=== PATIENT | female | born 1985 | race Caucasian/White ===

== ENCOUNTER 2016-10-08 19:19 | Emergency (ER) | payer OTHER ==
--- NOTE | 2016-10-08 21:49 | ED ORDER SUMMARY ---
..... Patient: ZELDA MONTES OrderSheet [facility] VisitID: [id number] [address] [place] [address] 31y, F Registration Date/Time: 10/08/2016 ORDER SHEET Weight: 64.4 kg (stated) Allergies: No Known Drug Allergy GENERAL ORDERS: US Pelvic Complete w Transvag Urgent (19:51 10/08/2016 HBivens A.R.N.P.) (Ack 20:02 AMcQuoid ER Tech1) (Cancelled: Wrong Order21:29 AMcQuoid ER Tech1) CBC w Diff Urgent (19:51 10/08/2016 HBivens A.R.N.P.) (Ack 20:02 AMcQuoid ER Tech1) (20:11 EHassan R.N.) CMP Urgent (19:51 10/08/2016 HBivens A.R.N.P.) (Ack 20:02 AMcQuoid ER Tech1) (20:11 EHassan R.N.) UA-Culture if indicated Urgent (19:51 10/08/2016 HBivens A.R.N.P.) (Ack 20:02 AMcQuoid ER Tech1) (20:45 EHassan R.N.) Amylase Urgent (19:51 10/08/2016 HBivens A.R.N.P.) (Ack 20:02 AMcQuoid ER Tech1) (20:11 EHassan R.N.) Lipase Urgent (19:51 10/08/2016 HBivens A.R.N.P.) (Ack 20:02 AMcQuoid ER Tech1) (20:11 EHassan R.N.) Urine Urgent (19:51 10/08/2016 HBivens A.R.N.P.) (Ack 20:02 AMcQuoid ER Tech1) (20:45 EHassan R.N.) US Soft Tissue Anywhere (er) Urgent (21:29 10/08/2016 AMcQuoid ER Tech1 verbal order read back to HBivens A.R.N.P.) (21:30 AMcQuoid ER Tech1) MEDICATION ORDERS: IV FLUIDS: Toradol IV 30 mg (NOW) (19:51 10/08/2016 HBivens A.R.N.P.) (20:11 Lisa R.N.) IV Saline Lock (19:51 10/08/2016 HBivens A.R.N.P.) (20:11 Lisa R.N.) ORDER SHEET NOTES: [Electronically signed by Jen TheodoreRBenNBenPBen (22:29 10/08/2016)] [Electronically signed by Veronique Huertas R.N. (23:08 10/08/2016)] [Electronically locked/signed by Veronique Huertas R.N. (23:08 10/08/2016)]
--- NOTE | 2016-10-08 21:49 | ED NURSING NOTES ---
Clinical Report - Nurses [facility] [address] [place] [address] 10/08/2016 19:21 Patient: ZELDA MONTES TRIAGE Triage time 1930 PM. Acuity: LEVEL 4. Chief Complaint: (left swollen lymph node). Alert. No acute distress. DONOVAN COMA SCORE: [place] Coma Scale: 15- eyes open spontaneously (4); best verbal response- oriented x 4 (5); best motor response- obeys commands (6). --19:45 Veronique Huertas R.N. 19:38 10/08/16. BP: 129/88. HR: 93. RR: 16. O2 saturation: 100% on room air. Temp: 99.3 F (oral). Pain level now: 04/26. --19:45 Veronique Huertas R.N. Weight: 64.4 kg stated. Height/Length: 63 inches Per Patient. BMI: 25.2. --19:38 Veronique Huertas R.N. Medications None. --23:07 Veronique Huertas R.N. Medication/allergy information source: the patient. --19:45 Veronique Huertas R.N. Allergies No Known Drug Allergy. --23:08 Veronique Huertas R.N. History Arrived by private vehicle. Historian: patient. Accompanied by family. Primary physician ([facility]). ( Pt states seeing her primary doctor today due to a left swollen lymph node that she noticed 3 days ago on her groin, was told that it was due to a yeast infection which got a cream prescription. Pt denies any fevers, pain has increased since today. Here for an evaluation). Onset. (3 days). No fever, weakness, cough, difficulty breathing or skin rash. Denies muscle aches. Treatment SENIOR SECURITY ANALYST: None. PAST MEDICAL HX: Immunizations: up-to-date. Uses an intrauterine device. SOCIAL HX: Never smoker. Occasional alcohol use. No drug use. ABUSE ASSESSMENT: No report of abuse. SELF HARM ASSESSMENT: A self harm assessment was performed. The patient answered "no" to the question "Do you have thoughts of harming or killing yourself?" and "Have you recently had thoughts about harming or killing others?". FALL RISK ASSESSMENT: Fall risk assessment completed. No fall risk identified. NUTRITIONAL RISK ASSESSMENT: The nutritional risk assessment revealed no deficiencies. FUNCTIONAL ASSESSMENT: Functional assessment: no impairments noted. LEARNING NEEDS ASSESSMENT: The learning needs assessment revealed no barriers. SKIN INTEGRITY ASSESSMENT: Skin integrity risk assessment completed. No skin integrity risk identified. --19:45 Veronique Huertas R.N. PROBLEMS: no known problems. Interventions ID band on patient. To room. --19:45 Veronique Huertas R.N. PHYSICAL ASSESSMENT Ambulatory to room. GENERAL / NEURO / PSYCH: Alert. Oriented X 4. Appears in no acute distress. Appears in pain and anxious. HEENT: Pupils equal, round and reactive to light. Mucous membranes are pink. RESPIRATORY: Respirations not labored. Breath sounds within normal limits. CVS: Capillary refill less than 2 seconds. GI / : Abdomen soft and nontender. SKIN: Skin intact. Skin is warm and dry. Normal skin turgor. --19:46 Veronique Huertas R.N. NURSING PROGRESS NOTES The initial plan of care for this patient has been created This plan of care was discussed with the patient. Patient gowned. Warming measures: blanket applied. Reassurance given. Call light placed in reach. Patient ready for evaluation- chart flagged and FENDER MECHANIC APPRENTICE notified. --19:46 Veronique Huertas R.N. 20:11 10/08/2016 Site #1 started via IV in the right antecubital space with an 20g angiocath; one attempt. Blood drawn: rainbow set. Labeled in the presence of the patient and sent to the lab. --20:11 Veronique Huertas R.N. 20:11 10/08/2016 Toradol IVP 30 mg given over 30 second(s) via site #1. Allergies verified and confirmed 5 rights. IV patency established. IV site checked: no pain, redness, or swelling. IV flushed thoroughly pre- and post-medication administration. IVP given by RN. --20:11 Veronique Huertas R.N. 20:45 10/08/2016 Toradol IVP Response: no adverse reaction pain is improving. --20:45 Veronique Huertas R.N. DISPOSITION / DISCHARGE 21:55 10/08/16. BP: 122/81. HR: 74. RR: 14. O2 saturation: 100%. Temp: 99.2 F. Pain level now 3/10. --21:55 Rosalie Betancur Condition at departure: unchanged. No learning barriers present. Discharge instructions provided and reviewed with the patient. Reviewed medication(s) side effects, precautions, dosing and course information. Patient verbalized understanding. Written instructions provided in Lao. The patient was discharged home and accompanied by family. She left the Emergency Department ambulatory and via private vehicle. Family member driving. FALL RISK ASSESSMENT: Fall risk assessment completed. No fall risk identified. --23:03 Floridalma Marte R.N. Departure time: 2199Oct 08 2016. --23:03 Floridalma Marte R.N. 23:03 10/08/2016 Site #1 removed upon discharge. Catheter intact. Bandage applied. --23:04 Floridalma Marte R.N. Locked/Released at 10/08/2016 23:08 by Veronique Huertas R.N.
--- NOTE | 2016-10-08 21:49 | ED CLINICAL REPORT ---
Clinical Report - Physicians/Mid Levels [facility] [address] [place] [address] 10/08/2016 19:21 Patient: ZELDA MONTES Time Seen: 19:40; initial patient contact, initial documentation, patient care assumed. Arrived- By private vehicle. Historian- patient. HISTORY OF PRESENT ILLNESS Chief Complaint: PELVIC PAIN. At its maximum, severity described as severe. When seen in the E.D., severity described as severe. Modifying factors. Not worsened by anything. Not relieved by anything. This started 3 days ago and is still present. It was abrupt in onset and has been constant. It is described as "pain". No radiation. It is described as located in the left pelvis. No nausea, loss of appetite, vomiting or diarrhea. No additional abdominal pain. (c/o lymph node swelling in L groin that is getting bigger thru-out the day). No recent travel. Similar symptoms previously: None. Recent medical care: The patient was seen recently in the office. ( went to dr today, and was told she had fungal infection of the skin in vagina area, cream given, and that the swelling was normal and it was a lymph node, but it is getting bigger and more painful). REVIEW OF SYSTEMS No constipation, black stools, hematemesis, difficulty with urination or pain with urination. No urinary frequency, bloody stools, fever, chest pain or difficulty breathing. She has missed periods. She has been using an IUD for control. Denies current . All systems otherwise negative, except as recorded above. PAST HISTORY Negative. SOCIAL HISTORY Never smoker. Occasional alcohol use. No drug use. No recent travel. Is a local resident. FAMILY HISTORY Negative. ADDITIONAL NOTES The nursing notes have been reviewed with agreement regarding the chief complaint, HPI, ROS, PMH and patient medications and allergies. PHYSICAL EXAM Vital Signs: 10/08/2016 19:38 BP: 129/88. HR: 93. RR: 16. O2 saturation: 100%. Temp: 99.3 F. Pain level now: 1010. Have been reviewed as normal and appear to be correct. Appearance: Alert. Oriented X3. No acute distress. Eyes: Pupils equal, round and reactive to light. Eyes normal inspection. Neck: Normal inspection. Neck supple. CVS: Normal heart rate and rhythm. Heart sounds normal. Pulses normal. Respiratory: No respiratory distress. Breath sounds normal. Chest nontender. Abdomen: Soft. Tenderness in the left lower quadrant. No guarding, rebound tenderness or Rogel's, obturator or psoas sign present. Bowel sounds normal. No organomegaly. Moderate, tender mass present in the left lower quadrant. No pulsatile mass present. No guarding present. Tenderness present. Mass present. Back: Normal inspection. Skin: Skin warm and dry. Normal skin color. No rash. Normal skin turgor. Extremities: Extremities exhibit normal ROM. No lower extremity edema. Neuro: Oriented X 3. No motor deficit. No sensory deficit. LABS, X-RAYS, AND EKG Pelvic Sonogram: . swollen lymph nodes L side verbal report per Fortumoher. Interpretation time: 21:15. Laboratory Tests: UA-Culture if indicated: (YESSY: 10/08/2016 20:45) ( [facility] 10/08/2016 21:00) Final results Test Result Flag Units (Reference) URINE COLOR YELLOW URINE APPEARANCE SL CLOUDY URINE GLUCOSE NEGATIVE (NEGATIVE) URINE BILIRUBIN NEGATIVE (NEGATIVE) URINE KETONE NEGATIVE (NEGATIVE) URINE SPECIFIC GRAVITY 1.025 (1.010-1.030) URINE PH 5.5 (5.0-8.0) URINE PROTEIN NEGATIVE (NEGATIVE) URINE UROBILINOGEN 0.2 EU/dL (0.2-1.0) URINE NITRITE NEGATIVE (NEGATIVE) URINE BLOOD TRACE-INTACT (NEGATIVE) URINE LEUK ESTERASE POSITIVE (NEGATIVE) URINE RBC 1-3 rbc/hpf (0-1) URINE WBC 3-5 wbc/hpf (0-1) URINE EPITHELIAL CELLS 3-5 EPI/hpf (0-5) URINE BACTERIA TRACE (<1+) (NONE SEEN) URINE COMMENT CULTURE INDICATED URINE CULTURES ARE SET-UP BASED ON THE FOLLOWING CRITERIA:POSITIVE NITRITEPOSITIVE LEUKOCYTE ESTERASEGREATER THAN 10 WHITE BLOOD CELLSMODERATE (2+) OR GREATER BACTERIA Urine: (YESSY: 10/08/2016 20:45) ( MsgRcvd 10/08/2016 20:52) Final results Test Result Flag Units (Reference) URINE NEGATIVE CBC w Diff: (YESSY: 10/08/2016 20:10) ( [facility] 10/08/2016 20:21) Final results Test Result Flag Units (Reference) WHITE BLOOD COUNT 10.9 K/uL (4.5-11.5) RED BLOOD COUNT 4.35 M/uL (4.00-5.20) HEMOGLOBIN 12.9 gm/dL (12.0-16.0) HEMATOCRIT 38.2 % (36.0-46.0) MEAN CELL VOLUME 88 fL (80-100) MEAN CORPUSCULAR HGB 30 pg (26-34) MEAN CORPUSCULAR HGB CONC 34 g/dL (31-37) RED CELL DISTRIBUTION WIDTH 12.9 % (11.6-14.8) PLATELET COUNT 232 K/uL (150-400) NEUTROPHIL % 76.9 H % (50-75) LYMPH % 12.1 L % (25-40) MONO % 9.0 % (3-14) EOSINOPHIL % 1.8 % (0-4) BASOPHIL % 0.2 % (0-2) CMP: (YESSY: 10/08/2016 20:10) ( [facility] 10/08/2016 20:35) Final results Test Result Flag Units (Reference) GLUCOSE 113 H mg/dL (70-110) BUN 10 mg/dL (7-18) CREATININE 0.8 mg/dL (0.6-1.3) Estimated GFR >60 mL/min Estimated GFR- >60 mL/min Note: Persistent reduction over 3 months in eGFR<60 mL/min/1.73 m2 defines CKD. Patients with eGFR values>=60 mL/min/1.73 m2 may also have CKD if evidence ofpersistent proteinuria. Additional information may be foundat www.kidney.org. SODIUM 139 mmol/L (136-145) POTASSIUM 3.6 mmol/L (3.5-5.1) CHLORIDE 105 mmol/L (98-107) CARBON DIOXIDE 26 mmol/L (21-32) CALCIUM 8.8 mg/dL (8.5-10.1) TOTAL PROTEIN 7.4 g/dL (6.4-8.2) ALBUMIN 3.9 g/dL (3.3-5.0) BILIRUBIN, TOTAL 0.4 mg/dL (0.0-1.0) ALKALINE PHOSPHATASE 54 U/L (46-116) AST (SGOT) 15 U/L (15-37) ALT (SGPT) 21 U/L (12-78) LIPASE 130 U/L (73-393) AMYLASE 42 U/L (25-115) . PROGRESS AND PROCEDURES Course of Care: 2100. US here. Patient counseled in person regarding the patient's stable condition, test results and diagnosis. 21:28. Differential Diagnosis: Other possible considerations: lymph node swelling, lymphadenitis, abscess, hernia, ovarian cyst, ectopic , ca. Above considerations are based on history, physical exam, laboratory data and other information. Differential diagnosis was discussed with patient. Disposition: Discharged home in good and improved condition (21:49). Condition: good and stable. CLINICAL IMPRESSION Acute left inguinal lymphadenitis Acute pelvic pain. Acute urinary tract infection. No cystitis, pyelonephritis or hematuria. Not associated with indwelling catheter or obstruction. INSTRUCTIONS Drink plenty of fluids. Warnings: GENERAL WARNINGS: Return or contact your physician immediately if your condition worsens or changes unexpectedly, if not improving as expected, or if other problems arise. SPECIFICALLY, return if you develop pain in the abdomen or pelvis, fever, the inability to keep fluids down, blood in vomitus, blood in diarrhea, fainting or lightheadedness. Prescription Medications: Bactrim DS: take 1 tablet orally every 12 hours for 10 days. No refill. Substitution is not permissible. Ultram 50 mg tablets: take 1-2 orally every 6 hours as needed for pain. Dispense twenty (20). No refills. Substitution is permissible. Follow-up: Follow up with your doctor in about five days even if well. Call for an appointment. Summary of care provided to patient. Understanding of the discharge instructions verbalized by patient. (Electronically signed by Jen Theodore A.R.N.P. 10/08/2016 22:29) Addenda for ZELDA MONTES VisitID: [id number] Date: 10/08/2016 10/08/2016 22:56 Pharmacy called; patient unable to take Bactrim because of Sulfa allergy. Per Jen Theodore, Rx changed to: Cipro 500 mg 1 tablet BID dispense 20 (Electronically signed by Julee Hidalgo - 10/08/2016 22:56)
--- NOTE | 2016-10-08 21:49 | ED NURSING NOTES ---
Clinical Report - Nurses [facility] [address] [place] [address] 10/08/2016 19:21 Patient: ZELDA MONTES TRIAGE Triage time 1930 PM. Acuity: LEVEL 4. Chief Complaint: (left swollen lymph node). Alert. No acute distress. DONOVAN COMA SCORE: [place] Coma Scale: 15- eyes open spontaneously (4); best verbal response- oriented x 4 (5); best motor response- obeys commands (6). --19:45 Veronique Huertas R.N. 19:38 10/08/16. BP: 129/88. HR: 93. RR: 16. O2 saturation: 100% on room air. Temp: 99.3 F (oral). Pain level now: 04/26. --19:45 Veronique Huertas R.N. Weight: 64.4 kg stated. Height/Length: 63 inches Per Patient. BMI: 25.2. --19:38 Veronique Huertas R.N. Medications None. --23:07 Veronique Huertas R.N. Medication/allergy information source: the patient. --19:45 Veronique Huertas R.N. Allergies No Known Drug Allergy. --23:08 Veronique Huertas R.N. History Arrived by private vehicle. Historian: patient. Accompanied by family. Primary physician ([facility]). ( Pt states seeing her primary doctor today due to a left swollen lymph node that she noticed 3 days ago on her groin, was told that it was due to a yeast infection which got a cream prescription. Pt denies any fevers, pain has increased since today. Here for an evaluation). Onset. (3 days). No fever, weakness, cough, difficulty breathing or skin rash. Denies muscle aches. Treatment COMMUNICATIONS EXECUTIVE: None. PAST MEDICAL HX: Immunizations: up-to-date. Uses an intrauterine device. SOCIAL HX: Never smoker. Occasional alcohol use. No drug use. ABUSE ASSESSMENT: No report of abuse. SELF HARM ASSESSMENT: A self harm assessment was performed. The patient answered "no" to the question "Do you have thoughts of harming or killing yourself?" and "Have you recently had thoughts about harming or killing others?". FALL RISK ASSESSMENT: Fall risk assessment completed. No fall risk identified. NUTRITIONAL RISK ASSESSMENT: The nutritional risk assessment revealed no deficiencies. FUNCTIONAL ASSESSMENT: Functional assessment: no impairments noted. LEARNING NEEDS ASSESSMENT: The learning needs assessment revealed no barriers. SKIN INTEGRITY ASSESSMENT: Skin integrity risk assessment completed. No skin integrity risk identified. --19:45 Veronique Huertas R.N. PROBLEMS: no known problems. Interventions ID band on patient. To room. --19:45 Veronique Huertas R.N. PHYSICAL ASSESSMENT Ambulatory to room. GENERAL / NEURO / PSYCH: Alert. Oriented X 4. Appears in no acute distress. Appears in pain and anxious. HEENT: Pupils equal, round and reactive to light. Mucous membranes are pink. RESPIRATORY: Respirations not labored. Breath sounds within normal limits. CVS: Capillary refill less than 2 seconds. GI / : Abdomen soft and nontender. SKIN: Skin intact. Skin is warm and dry. Normal skin turgor. --19:46 Veronique Huertas R.N. NURSING PROGRESS NOTES The initial plan of care for this patient has been created This plan of care was discussed with the patient. Patient gowned. Warming measures: blanket applied. Reassurance given. Call light placed in reach. Patient ready for evaluation- chart flagged and MORTGAGE BROKER notified. --19:46 Veronique Huertas R.N. 20:11 10/08/2016 Site #1 started via IV in the right antecubital space with an 20g angiocath; one attempt. Blood drawn: rainbow set. Labeled in the presence of the patient and sent to the lab. --20:11 Veronique Huertas R.N. 20:11 10/08/2016 Toradol IVP 30 mg given over 30 second(s) via site #1. Allergies verified and confirmed 5 rights. IV patency established. IV site checked: no pain, redness, or swelling. IV flushed thoroughly pre- and post-medication administration. IVP given by RN. --20:11 Veronique Huertas R.N. 20:45 10/08/2016 Toradol IVP Response: no adverse reaction pain is improving. --20:45 Veronique Huertas R.N. DISPOSITION / DISCHARGE 21:55 10/08/16. BP: 122/81. HR: 74. RR: 14. O2 saturation: 100%. Temp: 99.2 F. Pain level now 3/10. --21:55 Rosalie Betancur Condition at departure: unchanged. No learning barriers present. Discharge instructions provided and reviewed with the patient. Reviewed medication(s) side effects, precautions, dosing and course information. Patient verbalized understanding. Written instructions provided in Turkish. The patient was discharged home and accompanied by family. She left the Emergency Department ambulatory and via private vehicle. Family member driving. FALL RISK ASSESSMENT: Fall risk assessment completed. No fall risk identified. --23:03 Floridalma Marte R.N. Departure time: 2199Oct 08 2016. --23:03 Floridalma Marte R.N. 23:03 10/08/2016 Site #1 removed upon discharge. Catheter intact. Bandage applied. --23:04 Floridalma Marte R.N. Locked/Released at 10/08/2016 23:08 by Veronique Huertas R.N.
--- NOTE | 2016-10-08 21:49 | ED ORDER SUMMARY ---
..... Patient: ZELDA MONTES OrderSheet [facility] VisitID: [id number] [address] [place] [address] 31y, F Registration Date/Time: 10/08/2016 ORDER SHEET Weight: 64.4 kg (stated) Allergies: No Known Drug Allergy GENERAL ORDERS: US Pelvic Complete w Transvag Urgent (19:51 10/08/2016 HBivens A.R.N.P.) (Ack 20:02 AMcQuoid ER Tech1) (Cancelled: Wrong Order21:29 AMcQuoid ER Tech1) CBC w Diff Urgent (19:51 10/08/2016 HBivens A.R.N.P.) (Ack 20:02 AMcQuoid ER Tech1) (20:11 EHassan R.N.) CMP Urgent (19:51 10/08/2016 HBivens A.R.N.P.) (Ack 20:02 AMcQuoid ER Tech1) (20:11 EHassan R.N.) UA-Culture if indicated Urgent (19:51 10/08/2016 HBivens A.R.N.P.) (Ack 20:02 AMcQuoid ER Tech1) (20:45 EHassan R.N.) Amylase Urgent (19:51 10/08/2016 HBivens A.R.N.P.) (Ack 20:02 AMcQuoid ER Tech1) (20:11 EHassan R.N.) Lipase Urgent (19:51 10/08/2016 HBivens A.R.N.P.) (Ack 20:02 AMcQuoid ER Tech1) (20:11 EHassan R.N.) Urine Urgent (19:51 10/08/2016 HBivens A.R.N.P.) (Ack 20:02 AMcQuoid ER Tech1) (20:45 EHassan R.N.) US Soft Tissue Anywhere (er) Urgent (21:29 10/08/2016 AMcQuoid ER Tech1 verbal order read back to HBivens A.R.N.P.) (21:30 AMcQuoid ER Tech1) MEDICATION ORDERS: IV FLUIDS: Toradol IV 30 mg (NOW) (19:51 10/08/2016 HBivens A.R.N.P.) (20:11 Lisa R.N.) IV Saline Lock (19:51 10/08/2016 HBivens A.R.N.P.) (20:11 Lisa R.N.) ORDER SHEET NOTES: [Electronically signed by Jen TheodoreRBenNBenPBen (22:29 10/08/2016)] [Electronically signed by Veronique Huertas R.N. (23:08 10/08/2016)] [Electronically locked/signed by Veronique Huertas R.N. (23:08 10/08/2016)]
--- NOTE | 2016-10-08 21:49 | ED CLINICAL REPORT ---
Clinical Report - Physicians/Mid Levels [facility] [address] [place] [address] 10/08/2016 19:21 Patient: ZELDA MONTES Time Seen: 19:40; initial patient contact, initial documentation, patient care assumed. Arrived- By private vehicle. Historian- patient. HISTORY OF PRESENT ILLNESS Chief Complaint: PELVIC PAIN. At its maximum, severity described as severe. When seen in the E.D., severity described as severe. Modifying factors. Not worsened by anything. Not relieved by anything. This started 3 days ago and is still present. It was abrupt in onset and has been constant. It is described as "pain". No radiation. It is described as located in the left pelvis. No nausea, loss of appetite, vomiting or diarrhea. No additional abdominal pain. (c/o lymph node swelling in L groin that is getting bigger thru-out the day). No recent travel. Similar symptoms previously: None. Recent medical care: The patient was seen recently in the office. ( went to dr today, and was told she had fungal infection of the skin in vagina area, cream given, and that the swelling was normal and it was a lymph node, but it is getting bigger and more painful). REVIEW OF SYSTEMS No constipation, black stools, hematemesis, difficulty with urination or pain with urination. No urinary frequency, bloody stools, fever, chest pain or difficulty breathing. She has missed periods. She has been using an IUD for control. Denies current . All systems otherwise negative, except as recorded above. PAST HISTORY Negative. SOCIAL HISTORY Never smoker. Occasional alcohol use. No drug use. No recent travel. Is a local resident. FAMILY HISTORY Negative. ADDITIONAL NOTES The nursing notes have been reviewed with agreement regarding the chief complaint, HPI, ROS, PMH and patient medications and allergies. PHYSICAL EXAM Vital Signs: 10/08/2016 19:38 BP: 129/88. HR: 93. RR: 16. O2 saturation: 100%. Temp: 99.3 F. Pain level now: 1010. Have been reviewed as normal and appear to be correct. Appearance: Alert. Oriented X3. No acute distress. Eyes: Pupils equal, round and reactive to light. Eyes normal inspection. Neck: Normal inspection. Neck supple. CVS: Normal heart rate and rhythm. Heart sounds normal. Pulses normal. Respiratory: No respiratory distress. Breath sounds normal. Chest nontender. Abdomen: Soft. Tenderness in the left lower quadrant. No guarding, rebound tenderness or Rogel's, obturator or psoas sign present. Bowel sounds normal. No organomegaly. Moderate, tender mass present in the left lower quadrant. No pulsatile mass present. No guarding present. Tenderness present. Mass present. Back: Normal inspection. Skin: Skin warm and dry. Normal skin color. No rash. Normal skin turgor. Extremities: Extremities exhibit normal ROM. No lower extremity edema. Neuro: Oriented X 3. No motor deficit. No sensory deficit. LABS, X-RAYS, AND EKG Pelvic Sonogram: . swollen lymph nodes L side verbal report per [employer]. Interpretation time: 21:15. Laboratory Tests: UA-Culture if indicated: (YESSY: 10/08/2016 20:45) [facility] Final results Test Result Flag Units (Reference) URINE COLOR YELLOW URINE APPEARANCE SL CLOUDY URINE GLUCOSE NEGATIVE (NEGATIVE) URINE BILIRUBIN NEGATIVE (NEGATIVE) URINE KETONE NEGATIVE (NEGATIVE) URINE SPECIFIC GRAVITY 1.025 (1.010-1.030) URINE PH 5.5 (5.0-8.0) URINE PROTEIN NEGATIVE (NEGATIVE) URINE UROBILINOGEN 0.2 EU/dL (0.2-1.0) URINE NITRITE NEGATIVE (NEGATIVE) URINE BLOOD TRACE-INTACT (NEGATIVE) URINE LEUK ESTERASE POSITIVE (NEGATIVE) URINE RBC 1-3 rbc/hpf (0-1) URINE WBC 3-5 wbc/hpf (0-1) URINE EPITHELIAL CELLS 3-5 EPI/hpf (0-5) URINE BACTERIA TRACE (<1+) (NONE SEEN) URINE COMMENT CULTURE INDICATED URINE CULTURES ARE SET-UP BASED ON THE FOLLOWING CRITERIA:POSITIVE NITRITEPOSITIVE LEUKOCYTE ESTERASEGREATER THAN 10 WHITE BLOOD CELLSMODERATE (2+) OR GREATER BACTERIA Urine: (YESSY: 10/08/2016 20:45) ( [facility] 10/08/2016 20:52) Final results Test Result Flag Units (Reference) URINE NEGATIVE CBC w Diff: (YESSY: 10/08/2016 20:10) ( [facility]21[facility] Final results Test Result Flag Units (Reference) WHITE BLOOD COUNT 10.9 K/uL (4.5-11.5) RED BLOOD COUNT 4.35 M/uL (4.00-5.20) HEMOGLOBIN 12.9 gm/dL (12.0-16.0) HEMATOCRIT 38.2 % (36.0-46.0) MEAN CELL VOLUME 88 fL (80-100) MEAN CORPUSCULAR HGB 30 pg (26-34) MEAN CORPUSCULAR HGB CONC 34 g/dL (31-37) RED CELL DISTRIBUTION WIDTH 12.9 % (11.6-14.8) PLATELET COUNT 232 K/uL (150-400) NEUTROPHIL % 76.9 H % (50-75) LYMPH % 12.1 L % (25-40) MONO % 9.0 % (3-14) EOSINOPHIL % 1.8 % (0-4) BASOPHIL % 0.2 % (0-2) CMP: (YESSY: 10/08/2016 20:10) ( [facility]35[facility] Final results Test Result Flag Units (Reference) GLUCOSE 113 H mg/dL (70-110) BUN 10 mg/dL (7-18) CREATININE 0.8 mg/dL (0.6-1.3) Estimated GFR >60 mL/min Estimated GFR- >60 mL/min Note: Persistent reduction over 3 months in eGFR<60 mL/min/1.73 m2 defines CKD. Patients with eGFR values>=60 mL/min/1.73 m2 may also have CKD if evidence ofpersistent proteinuria. Additional information may be foundat www.kidney.org. SODIUM 139 mmol/L (136-145) POTASSIUM 3.6 mmol/L (3.5-5.1) CHLORIDE 105 mmol/L (98-107) CARBON DIOXIDE 26 mmol/L (21-32) CALCIUM 8.8 mg/dL (8.5-10.1) TOTAL PROTEIN 7.4 g/dL (6.4-8.2) ALBUMIN 3.9 g/dL (3.3-5.0) BILIRUBIN, TOTAL 0.4 mg/dL (0.0-1.0) ALKALINE PHOSPHATASE 54 U/L (46-116) AST (SGOT) 15 U/L (15-37) ALT (SGPT) 21 U/L (12-78) LIPASE 130 U/L (73-393) AMYLASE 42 U/L (25-115) . PROGRESS AND PROCEDURES Course of Care: 2100. US here. Patient counseled in person regarding the patient's stable condition, test results and diagnosis. 21:28. Differential Diagnosis: Other possible considerations: lymph node swelling, lymphadenitis, abscess, hernia, ovarian cyst, ectopic , ca. Above considerations are based on history, physical exam, laboratory data and other information. Differential diagnosis was discussed with patient. Disposition: Discharged home in good and improved condition (21:49). Condition: good and stable. CLINICAL IMPRESSION Acute left inguinal lymphadenitis Acute pelvic pain. Acute urinary tract infection. No cystitis, pyelonephritis or hematuria. Not associated with indwelling catheter or obstruction. INSTRUCTIONS Drink plenty of fluids. Warnings: GENERAL WARNINGS: Return or contact your physician immediately if your condition worsens or changes unexpectedly, if not improving as expected, or if other problems arise. SPECIFICALLY, return if you develop pain in the abdomen or pelvis, fever, the inability to keep fluids down, blood in vomitus, blood in diarrhea, fainting or lightheadedness. Prescription Medications: Bactrim DS: take 1 tablet orally every 12 hours for 10 days. No refill. Substitution is not permissible. Ultram 50 mg tablets: take 1-2 orally every 6 hours as needed for pain. Dispense twenty (20). No refills. Substitution is permissible. Follow-up: Follow up with your doctor in about five days even if well. Call for an appointment. Summary of care provided to patient. Understanding of the discharge instructions verbalized by patient. (Electronically signed by Jen Theodore A.R.N.P. 10/08/2016 22:29) Addenda for ZELDA MONTES VisitID: [id number] Date: 10/08/2016 10/08/2016 22:56 Pharmacy called; patient unable to take Bactrim because of Sulfa allergy. Per Jen Theodore, Rx changed to: Cipro 500 mg 1 tablet BID dispense 20 (Electronically signed by Julee Hidalgo - 10/08/2016 22:56)
--- NOTE | 2016-10-08 23:08 | ED MAR SUMMARY ---
..... Medication Administration Record [facility] [address] [place] [address] Patient: ZELDA MONTES Visit ID: [id number] 31y, F Weight: 64.4 kg Height/Length: 63 in BMI: 25.2 ALLERGIES: No Known Drug Allergy Given 20:11 10/08/2016 Veronique Huertas R.N. Medication Administered: TORADOL [IVP], Dose: 30 mg IVP over 30 second(s), Site: #1 right AC. Medication Ordered: Toradol IV 30 mg (NOW).
--- NOTE | 2016-10-08 23:08 | ED DISCHARGE INSTRUCTIONS ---
Patient: ZELDA MONTES General Instructions [facility] VisitID: [id number] [place] [address] 31y, F Registration Date/Time: 10/08/2016 Acute left inguinal lymphadenitis Acute pelvic pain. Acute urinary tract infection. No cystitis, pyelonephritis or hematuria. Not associated with indwelling catheter or obstruction. INSTRUCTIONS Drink plenty of fluids. Warnings: GENERAL WARNINGS: Return or contact your physician immediately if your condition worsens or changes unexpectedly, if not improving as expected, or if other problems arise. SPECIFICALLY, return if you develop pain in the abdomen or pelvis, fever, the inability to keep fluids down, blood in vomitus, blood in diarrhea, fainting or lightheadedness. Prescription Medications: Bactrim DS: take 1 tablet orally every 12 hours for 10 days. No refill. Substitution is not permissible. Ultram 50 mg tablets: take 1-2 orally every 6 hours as needed for pain. Dispense twenty (20). No refills. Substitution is permissible. Follow-up: Follow up with your doctor in about five days even if well. Call for an appointment. Summary of care provided to patient. Understanding of the discharge instructions verbalized by patient. ADDITIONAL INFORMATION Bladder Infection,Female (Adult) A bladder infection ("cystitis" or "UTI") usually causes a constant urge to urinate and a burning when passing urine. Urine may be cloudy, smelly or dark. There may be pain in the lower abdomen. A bladder infection occurs when bacteria from the vaginal area enter the bladder opening (urethra). This can occur from sexual intercourse, wearing tight clothing, dehydration and other factors. Home Care: Drink lots of fluids (at least 6-8 glasses a day, unless you must restrict fluids for other medical reasons). This will force the medicine into your urinary system and flush the bacteria out of your body. Avoid sexual intercourse until your symptoms are gone. Avoid caffeine, alcohol and spicy foods. These can irritate the bladder. A bladder infection is treated with antibiotics. You may also be given Pyridium (generic = phenazopyridine) to reduce the burning sensation. This medicine will cause your urine to become a bright orange color. The orange urine may stain clothing. You may wear a pad or panty-liner to protect clothing. Preventing Future Infections: Always wipe from front to back after a bowel movement. Keep the genital area clean and dry. Drink plenty of fluids each day to avoid dehydration. Both sexual partners should wash before intercourse. Urinate right after intercourse to flush out the bladder. Wear cotton underwear and cotton-lined panty hose; avoid tight-fitting pants. If you are on control pills and are having frequent bladder infections, discuss with your doctor. Follow Up: Return to this facility or see your doctor if ALL symptoms are not gone after three days of treatment. Get Prompt Medical Attention if any of the following occur: Fever of 100.4F (38C) or higher, or as directed by your healthcare provider No improvement by the third day of treatment Increasing back or abdominal pain Repeated vomiting; unable to keep medicine down Weakness, dizziness or fainting Vaginal discharge Pain, redness or swelling in the labia (outer vaginal area) Pelvic Pain, Uncertain Cause Based on your visit today, the exact cause of your pelvic pain is not certain. But your condition does not appear to be serious at this time. However, the signs of a serious problem may take more time to appear. Therefore, it is important for you to watch for any new symptoms or worsening of your condition. Home Care: Rest until you are feeling better. Avoid sexual intercourse until your pain goes away. You may use acetaminophen (Tylenol) or ibuprofen (Motrin, Advil) to control pain, unless another medicine was prescribed. [NOTE: If you have chronic liver or kidney disease or ever had a stomach ulcer or GI bleeding, talk with your doctor before using these medicines.] Follow Up with your doctor as advised. If a culture test was taken, call in two days for the results. If the culture is positive, you will be given more advice at that time. Otherwise, follow-up with your doctor or this facility as instructed. Get Prompt Medical Attention if any of the following occur: Fever of 100.4F (38C) or higher, or as directed by your healthcare provider Vaginal discharge Worsening pain Weakness, dizziness or fainting Unexpected vaginal bleeding or passage of small or white tissue from the vagina Pain that moves to the right lower abdomen Lymph Node Infection [Local, Antibiotic Treatment] You have a bacterial infection of the lymph node. The lymph nodes are part of the immune system and become swollen and tender when there is a nearby infection or inflammation. The lymph nodes are found under the jaw and along the side of the neck, in the armpits and in the groin. An infection or inflammation in the tissues nearby causes the lymph nodes to swell and become tender. When a bacterial infection occurs in the lymph node, it becomes very painful and the nearby skin gets red and warm. There may also be a fever. Antibiotics and hot compresses are used to treat this infection. The pain and redness will decrease over the next 7-10 days. Swelling may take several months to go away. Sometimes an ABSCESS (with pus) forms inside the lymph node. If this happens, antibiotics may not be enough to cure the infection. Minor Surgery may be needed to drain the pus. Home Care: Take all of the antibiotic medicine exactly as prescribed until it is gone. Be careful not to miss any doses, especially during the first few days. Make a hot compress by running hot water over a face cloth. Apply it to the sore area until it cools off. Repeat this for 20 minutes. Apply the hot compress three times a day for the first three days or until the pain and redness begin to improve. The heat will increase the blood flow to the area and speed the healing process. You may use acetaminophen (Tylenol) or ibuprofen (Motrin, Advil) to control pain and fever, unless another medicine was prescribed for this. Do not use ibuprofen in children under six months of age. [NOTE: If you have chronic liver or kidney disease or ever had a stomach ulcer or GI bleeding, talk with your doctor before using these medicines.] (Aspirin should never be used in anyone under 18 years of age who is ill with a fever. It may cause severe liver damage.) Follow Up with your doctor or this facility after completion of the antibiotics or as directed. Get Prompt Medical Attention if any of the following occur: Increasing redness, swelling or pain in the lymph node Pus or fluid drainage from the lymph node Difficulty breathing or swallowing Fever remains over 100.5F (38.0C) oral or 101.5F (38.3C) rectal for more than 2 days of treatment Sulfamethoxazole, Trimethoprim Oral tablet What is this medicine? SULFAMETHOXAZOLE; TRIMETHOPRIM or SMX-TMP (suhl fuh meth OK sincere zohl; trye METH oh prim) is a combination of a sulfonamide antibiotic and a second antibiotic, trimethoprim. It is used to treat or prevent certain kinds of bacterial infections. It will not work for colds, flu, or other viral infections. How should I use this medicine? Take this medicine by mouth with a full glass of water. Follow the directions on the prescription label. Take your medicine at regular intervals. Do not take it more often than directed. Do not skip doses or stop your medicine early. Talk to your packing machine tender regarding the use of this medicine in children. Special care may be needed. This medicine has been used in children as young as 2 months of age. What side effects may I notice from receiving this medicine? Side effects that you should report to your doctor or health housekeeper child care as soon as possible: allergic reactions like skin rash or hives, swelling of the face, lips, or tongue breathing problems fever or chills, sore throat irregular heartbeat, chest pain joint or muscle pain pain or difficulty passing urine red pinpoint spots on skin redness, blistering, peeling or loosening of the skin, including inside the mouth unusual bleeding or bruising unusually weak or tired yellowing of the eyes or skin Side effects that usually do not require medical attention (report to your doctor or health housekeeper child care if they continue or are bothersome): diarrhea dizziness headache loss of appetite nausea, vomiting nervousness What may interact with this medicine? Do not take this medicine with any of the following medications: aminobenzoate potassium dofetilide metronidazole This medicine may also interact with the following medications: CHINTAN inhibitors like benazepril, enalapril, lisinopril, and ramipril cyclosporine digoxin diuretics indomethacin medicines for diabetes methenamine methotrexate phenytoin potassium supplements pyrimethamine sulfinpyrazone tricyclic antidepressants warfarin What if I miss a dose? If you miss a dose, take it as soon as you can. If it is almost time for your next dose, take only that dose. Do not take double or extra doses. Where should I keep my medicine? Keep out of the reach of children. Store at room temperature between 20 to 25 degrees C (68 to 77 degrees F). Protect from light. Throw away any unused medicine after the expiration date. What should I tell my health care provider before I take this medicine? They need to know if you have any of these conditions: anemia asthma being treated with anticonvulsants if you frequently drink alcohol containing drinks kidney disease liver disease low level of folic acid or [id number] dehydrogenase poor nutrition or malabsorption porphyria severe allergies thyroid disorder an unusual or allergic reaction to sulfamethoxazole, trimethoprim, sulfa drugs, other medicines, foods, dyes, or preservatives or trying to get breast-feeding What should I watch for while using this medicine? Tell your doctor or health housekeeper child care if your symptoms do not improve. Drink several glasses of water a day to reduce the risk of kidney problems. Do not treat diarrhea with over the counter products. Contact your doctor if you have diarrhea that lasts more than 2 days or if it is severe and watery. This medicine can make you more sensitive to the sun. Keep out of the sun. If you cannot avoid being in the sun, wear protective clothing and use a sunscreen. Do not use sun lamps or tanning beds/booths. Tramadol Hydrochloride Oral tablet What is this medicine? TRAMADOL (TRA ma dole) is a pain reliever. It is used to treat moderate to severe pain in adults. How should I use this medicine? Take this medicine by mouth with a full glass of water. Follow the directions on the prescription label. If the medicine upsets your stomach, take it with food or milk. Do not take more medicine than you are told to take. Talk to your packing machine tender regarding the use of this medicine in children. Special care may be needed. What side effects may I notice from receiving this medicine? Side effects that you should report to your doctor or health housekeeper child care as soon as possible: allergic reactions like skin rash, itching or hives, swelling of the face, lips, or tongue breathing difficulties, wheezing confusion itching light headedness or fainting spells redness, blistering, peeling or loosening of the skin, including inside the mouth seizures Side effects that usually do not require medical attention (report to your doctor or health housekeeper child care if they continue or are bothersome): constipation dizziness drowsiness headache nausea, vomiting What may interact with this medicine? Do not take this medicine with any of the following medications: MAOIs like Carbex, Eldepryl, Marplan, Nardil, and Parnate This medicine may also interact with the following medications: alcohol or medicines that contain alcohol antihistamines benzodiazepines bupropion carbamazepine or oxcarbazepine clozapine cyclobenzaprine digoxin furazolidone linezolid medicines for depression, anxiety, or psychotic disturbances medicines for migraine headache like almotriptan, eletriptan, frovatriptan, naratriptan, rizatriptan, sumatriptan, zolmitriptan medicines for pain like pentazocine, buprenorphine, butorphanol, meperidine, nalbuphine, and propoxyphene medicines for sleep muscle relaxants naltrexone phenobarbital phenothiazines like perphenazine, thioridazine, chlorpromazine, mesoridazine, fluphenazine, prochlorperazine, promazine, and trifluoperazine procarbazine warfarin What if I miss a dose? If you miss a dose, take it as soon as you can. If it is almost time for your next dose, take only that dose. Do not take double or extra doses. Where should I keep my medicine? Keep out of the reach of children. Store at room temperature between 15 and 30 degrees C (59 and 86 degrees F). Keep container tightly closed. Throw away any unused medicine after the expiration date. What should I tell my health care provider before I take this medicine? They need to know if you have any of these conditions: brain tumor depression drug abuse or addiction head injury if you frequently drink alcohol containing drinks kidney disease or trouble passing urine liver disease lung disease, asthma, or breathing problems seizures or epilepsy suicidal thoughts, plans, or attempt; a previous suicide attempt by you or a family member an unusual or allergic reaction to tramadol, codeine, other medicines, foods, dyes, or preservatives or trying to get breast-feeding What should I watch for while using this medicine? Tell your doctor or health housekeeper child care if your pain does not go away, if it gets worse, or if you have new or a different type of pain. You may develop tolerance to the medicine. Tolerance means that you will need a higher dose of the medicine for pain relief. Tolerance is normal and is expected if you take this medicine for a long time. Do not suddenly stop taking your medicine because you may develop a severe reaction. Your body becomes used to the medicine. This does NOT mean you are addicted. Addiction is a behavior related to getting and using a drug for a non-medical reason. If you have pain, you have a medical reason to take pain medicine. Your doctor will tell you how much medicine to take. If your doctor wants you to stop the medicine, the dose will be slowly lowered over time to avoid any side effects. You may get drowsy or dizzy. Do not drive, use machinery, or do anything that needs mental alertness until you know how this medicine affects you. Do not stand or sit up quickly, especially if you are an older patient. This reduces the risk of dizzy or fainting spells. Alcohol can increase or decrease the effects of this medicine. Avoid alcoholic drinks. You may have constipation. Try to have a bowel movement at least every 2 to 3 days. If you do not have a bowel movement for 3 days, call your doctor or health housekeeper child care. Your mouth may get dry. Chewing sugarless gum or sucking hard candy, and drinking plenty of water may help. Contact your doctor if the problem does not go away or is severe. You have been given the following additional information: Bladder Infection, Female (Adult) Pelvic Pain, Unknown Cause Cervical Adenitis, Antiobiotic Treatment Sulfamethoxazole, Trimethoprim Oral tablet Tramadol Hydrochloride Oral tablet (Electronically signed by Jen Theodore A.R.NBenPBen 10/08/2016 22:29)
--- NOTE | 2016-10-08 23:08 | ED MED RECONCILIATION SUMMARY ---
Patient: ZELDA MONTES Medication Reconciliation Report [facility] VisitID: [id number] [address] [place] [address] 31y, F Registration Date/Time: 10/08/2016 Weight: 64.4 kg Height/Length: 63 in. BMI: 25.2 ALLERGIES: No Known Drug Allergy The patient's Home Medications are listed below: NONE. The source(s) of the original Home Medication information: patient The following Medications were given to the patient in the Emergency Department: Toradol [IVP] IVP 30 mg, administered: 10/08/2016 8:11:00 PM The following Medications were prescribed to the patient: Bactrim DS: take 1 tablet orally every 12 hours for 10 days. No refill. Substitution is not permissible. -- Jen Theodore, Lisa.R.N.P. Ultram 50 mg tablets: take 1-2 orally every 6 hours as needed for pain. Dispense twenty (20). No refills. Substitution is permissible. -- Jen Theodore, A.R.N.P.
--- NOTE | 2016-10-08 23:08 | ED MED RECONCILIATION SUMMARY ---
Patient: ZELDA MONTES Medication Reconciliation Report [facility] VisitID: [id number] [address] [place] [address] 31y, F Registration Date/Time: 10/08/2016 Weight: 64.4 kg Height/Length: 63 in. BMI: 25.2 ALLERGIES: No Known Drug Allergy The patient's Home Medications are listed below: NONE. The source(s) of the original Home Medication information: patient The following Medications were given to the patient in the Emergency Department: Toradol [IVP] IVP 30 mg, administered: 10/08/2016 8:11:00 PM The following Medications were prescribed to the patient: Bactrim DS: take 1 tablet orally every 12 hours for 10 days. No refill. Substitution is not permissible. -- Jen Theodore, Lisa.R.N.P. Ultram 50 mg tablets: take 1-2 orally every 6 hours as needed for pain. Dispense twenty (20). No refills. Substitution is permissible. -- Jen Theodore, A.R.N.P.
--- NOTE | 2016-10-08 23:08 | ED MAR SUMMARY ---
..... Medication Administration Record [facility] [address] [place] [address] Patient: ZELDA MONTES Visit ID: [id number] 31y, F Weight: 64.4 kg Height/Length: 63 in BMI: 25.2 ALLERGIES: No Known Drug Allergy Given 20:11 10/08/2016 Veronique Huertas R.N. Medication Administered: TORADOL [IVP], Dose: 30 mg IVP over 30 second(s), Site: #1 right AC. Medication Ordered: Toradol IV 30 mg (NOW).
--- NOTE | 2016-10-08 23:29 | DIAGNOSTIC IMAGING REPORT ---
PROCEDURE: US SOFT TISSUE ANYWHERE INDICATION: Palpable area in medial left groin. TECHNIQUE: Boateng scale and color Doppler sonographic images of the medial left groin were obtained COMPARISON: None. FINDINGS: There is a 3.5 x 1.5 cm mildly irregular hypoechoic area in the medial left groin suspicious for proteinaceous fluid collection (versus necrotic lymph node). IMPRESSION: 1. There is a 3.5 x 1.5 cm irregular hypoechoic area in the left groin suspicious for proteinaceous fluid collection (e.g., abscess) versus necrotic lymph node (less likely). 2. Findings discussed with Dr. Jeet Back.
== END 2016-10-08 22:00 | disposition home or self-care (01) ==
LOC: ED SRH 19:19
DX: N39.0 Urinary tract infection, site not specified (principal); L04.8 Acute lymphadenitis of other sites; R10.2 Pelvic and perineal pain
CPT/HCPCS: 90004; 90100; 90469; 92235; 92530; 93070; 95059